=== PATIENT | female | born 1960 | race Caucasian/White ===

== ENCOUNTER 2017-06-24 14:29 | Emergency (ER) | payer OTHER ==
[2017-06-24 14:34] VITALS: BP 149/88; PULSE 67; TEMP 98.1; BMI 32.8
--- NOTE | 2017-06-24 14:34 | PDOC ---
History of Present Illness - General Chief Complaint: Injury Stated Complaint: LEFT FOOT PAIN Time Seen by Provider: 06/24/17 14:31 - History of Present Illness Initial Comments: 56 year old female with no significant PMH presenting with left foot pain after tripping on her welcome rug at the bottom of her stairs. She was stepping downward off of her rear landing and her foot got caught at the end of a crooked welcome mat causing her to invert her ankle temporarily. She caught her balance on the should of her friend and a nearby railing which prevented her from falling. She was able to walk briefly to a chair then was brought into the ED by wheelchair/ EMS. Her primary complaint is pain and bruising over her left lateral foot. She denies and bleeding or skin breakage a the site. 06/26/17 04:18 06/26/17 05:19 Past History - Past Medical History Allergies/Adverse Reactions: Allergies Allergy/AdvReac Type Severity Reaction Status Date / Time No Known Allergies Allergy Verified 06/24/17 14:30 Home Medications: Ambulatory Orders Ibuprofen [Advil -] 400 mg PO ASDIR 06/24/17 Naproxen [Naprosyn -] 375 mg PO Q12H PRN #30 tablet 06/24/17 Anemia: No Asthma: No Cancer: No Cardiac Disorders: No CVA: No COPD: No CHF: No Dementia: No Diabetes: No GI Disorders: No Disorders: No HTN: No Hypercholesterolemia: No Liver Disease: No Seizures: No Thyroid Disease: No - Surgical History Abdominal Surgery: No Appendectomy: No Cardiac Surgery: No Cholecystectomy: No Lung Surgery: No Neurologic Surgery: No Orthopedic Surgery: No - Psycho/Social/Smoking Cessation Hx Smoking History: Never smoked Have you smoked in the past 12 months: No Hx Alcohol Use: No Drug/Substance Use Hx: No Substance Use Type: None Hx Substance Use Treatment: No Review of Systems - Review of Systems Constitutional: No: Chills, Diaphoresis, Fever, Loss of Appetite HEENTM: No: Blurred Vision, Tearing, Recent change in vision Respiratory: No: Cough, Orthopnea, Shortness of Breath Cardiac (ROS): No: Chest Pain, Edema, Irregular Heart Rate ABD/GI: No: Abdominal Distended, Constipated, Diarrhea, Vomiting : No: Burning, Dysuria, Discharge Musculoskeletal: No: Back Pain, Gout, Joint Pain Integumentary: Yes: Bruising, Change in Color. No: Flushing, Lesions Neurological: No: Headache, Numbness *Physical Exam - Physical Exam General Appearance: Yes: Nourished, Appropriately Dressed. No: Apparent Distress HEENT: positive: EOMI, LAYLA, Normal Voice Neck: positive: Trachea midline, Normal Thyroid, Supple. negative: Tender, Rigid Respiratory/Chest: positive: Lungs Clear, Normal Breath Sounds. negative: Chest Tender, Respiratory Distress, Accessory Muscle Use Cardiovascular: positive: Regular Rhythm, Regular Rate, S1, S2. negative: Edema , Murmur Gastrointestinal/Abdominal: positive: Normal Bowel Sounds, Flat, Soft. negative : Tender Musculoskeletal: positive: Decreased Range of Motion (Unable to bear weight on left lower extremity with full range of passive motion on left ankle.), Other ( Bruising over dosolateral portion of left foot with TTP at proximal portion of 5th metatarsal lateral and dorsal edge. Sensation and vascualr intact distal to site of bruising. No concernign swelling. ). negative: Normal Inspection Extremity: positive: Normal Capillary Refill. negative: Normal Range of Motion (Per aboe) Integumentary: positive: Dry, Warm, Ecchymosis, Bruising. negative: Normal Color Neurologic: positive: light bulb replacer II-XII NML intact, Fully Oriented, Alert, Normal Mood/ Affect, Normal Response Medical Decision Making - Medical Decision Making 56 year old healthy female with foot pain s/p inversion trauma and subsequent tenderness on proximal 5th metatarsal. Foot XR positive for fracture of proximal 5th metatarsal. [facility] and partial weight bearing orders with ortho follow up scheduled for Monday with [facility]. *DC/Admit/Observation/Transfer Diagnosis at time of Disposition: Fracture of foot bone, left, closed - Discharge Dispostion Disposition: HOME Condition at time of disposition: Stable Admit: No - Prescriptions Prescriptions: Naproxen [Naprosyn -] 375 mg PO Q12H PRN #30 tablet PRN Reason: Foot Pain - Referrals Referrals: Jamir Mcguire MD [Primary Care Provider] - Hermes Grewal MD [Staff Physician] - - Patient Instructions Printed Discharge Instructions: DI for Foot Fracture Additional Instructions: You were seen for pain in your left foot. We shot an X Ray and saw a fracture that does not require immediate intervention. We have prescribed you with some pain medications to help you tolerate the pain. Please use the crutches and use that foot partially while also bearing weight on the crutches as tolerated. Please see the orthopedic surgeon on Monday ([facility]). - Attestations Physician Attestion: 06/24/17 17:11 I, Dr. Clark Peñaloza, attest that this document has been prepared under my direction and personally reviewed by me in its entirety. I further attest, that it accurately reflects all work, treatment, procedures and medical decision -making performed by me.
== END 2017-06-24 17:22 | disposition home or self-care (01) ==
LOC: FER 14:29
PROC: 2W3VX1Z Immobilization of Left Toe using Splint (ICD-10-PCS; principal; 2017-06-24)
DX: S92.352A Displaced fracture of fifth metatarsal bone, left foot, initial encounter for closed fracture (principal); W18.09XA Striking against other object with subsequent fall, initial encounter; Y93.89 Activity, other specified; Y92.9 Unspecified place or not applicable
CPT/HCPCS: 73630-TC-LT; 99281-25

== ENCOUNTER 2023-03-11 16:50 | Emergency (ER) | payer BC, OTHER ==
[2023-03-11 17:17] VITALS: BP 142/86; PULSE 84; RESP 18; TEMP 98.6; BMI 28.7
[2023-03-11] MEDS ORDERED: DIPHTH,PERTUSS(ACELL),TET 0.5 ML DISP.SYRIN IM ONE ×2 (17:39→17:40)
== END 2023-03-11 17:50 | disposition home or self-care (01) ==
LOC: FER 16:50
PROC: 0HQFXZZ Repair Right Hand Skin, External Approach (ICD-10-PCS; principal; 2023-03-11)
PROC: 3E0234Z Introduction of Serum, Toxoid and Vaccine into Muscle, Percutaneous Approach (ICD-10-PCS; 2023-03-11)
DX: S61.511A Laceration without foreign body of right wrist, initial encounter (principal); W26.8XXA Contact with other sharp object(s), not elsewhere classified, initial encounter; Y93.G1 Activity, food preparation and clean up
CPT/HCPCS: 90715; 99282-25

== ENCOUNTER 2023-03-23 14:29 | Emergency (ER) | payer BC, OTHER ==
[2023-03-23 14:46] VITALS: BP 147/97; PULSE 78; RESP 18; TEMP 98.1; BMI 28.6
== END 2023-03-23 15:20 | disposition home or self-care (01) ==
LOC: FER 14:29
DX: Z48.02 Encounter for removal of sutures (principal)
CPT/HCPCS: 99281-25